=== PATIENT | female | born 1950 | race Asian ===

== ENCOUNTER 2022-05-19 12:38 | Emergency (ER) | payer MEDICARE ==
[~2022-05-19] VITALS: Ht 162.6 cm; Wt 55.3 kg
--- NOTE | 2022-05-19 12:45 | NUR ---
Pt was triaged and brought back to ER waiting room. Family with pt. No ER beds available at this time.
--- NOTE | 2022-05-19 13:37 | NUR ---
Pt ambulatory to room 4A.
--- NOTE | 2022-05-19 13:37 | NUR ---
Shanell brown in [facility], [place] - 05/19/22 at 1337 by TRIPP Pt ambulatory to room 4B.
[2022-05-19 14:29] LABS: HEMATOCRIT 33.8 % (31.2-41.9); MEAN CORPUSCULAR HEMOGLOBIN 26.9 uug (24.7-32.8); MEAN CORPUSCULAR VOLUME 81.3 fL (75.5-95.3); PLATELET COUNT (AUTO) 284 K/uL (179-408)
[2022-05-19 14:50] LABS: ALANINE AMINOTRANSFERASE 30 U/L (14-59); ALKALINE PHOSPHATASE 62 U/L (50-136); ASPARTATE AMINOTRANSFERASE 24 U/L (15-37); BILIRUBIN,DIRECT 0.2 mg/dL (0.0-0.2); BILIRUBIN,TOTAL 0.7 mg/dL (0.2-1.0); CARBON DIOXIDE 26 mmol/L (21-32); CHLORIDE 103 mmol/L (98-107); CREATININE 0.6 mg/dL (0.6-1.3); GLUCOSE 123 mg/dL (74-106); POTASSIUM 3.6 mmol/L (3.5-5.1); UREA NITROGEN, BLOOD 13 mg/dL (7-18)
[2022-05-19 16:08] VITALS: BP 130/81
--- NOTE | 2022-05-19 16:08 | NUR ---
Patient discharged to home in stable condition with son. Written and verbal after care instructions given. Patient and family verbalized understanding of instructions. Stressed follow up or return to ER for worsening s/s.
== END 2022-05-19 16:08 | disposition home or self-care (01) ==
LOC: ER 12:38
DX: R55 Syncope and collapse (principal); R51.9 Headache, unspecified; Z20.822 Contact with and (suspected) exposure to COVID-19; I10 Essential (primary) hypertension; E78.5 Hyperlipidemia, unspecified; R94.31 Abnormal electrocardiogram [ECG] [EKG]
CPT/HCPCS: 36415; 70450; 71045; 84484; 85025; 93005; A4663